=== PATIENT | male | born 1985 | race Caucasian/White ===

== ENCOUNTER 2021-07-06 10:36 | Inpatient (IN) ==
--- NOTE | 2021-07-06 11:52 | Emergency Department Note ---
Impression & Plan Pneumonia due to 2019 novel coronavirus, WASSERMAN (dyspnea on exertion) ED Provider Note NAME: YAO ALARCON AGE: 35 SEX: M : 1985 ARRIVES VIA: Walk-In INFORMANT: Patient, ED PROVIDER(S): Pilo Carey DO CHIEF COMPLAINT: Chest pain HPI: The patient is a 35-year-old male who presented to the emergency department for an evaluation of chest pain. The patient describes chest pain and difficulty breathing which began approximately 9 to 10 days ago. The patient was seen in our facility recently and diagnosed with COVID-19 infection. He denies having any nausea or vomiting. He denies having any leg pain or swelling. He initially presented to our facility for possible DVT because of the left calf pain. He states that those symptoms have since improved but he now complains of cough difficulty breathing and chest pain. He did not see his family doctor for the symptoms. He was tested positive for COVID-19. The patient did not get the Covid vaccine. He has been trying to take [id number] medication with only minimal relief. ROS: See above HPI for pertinent positives & negatives. A total of 10 systems reviewed and were otherwise negative. PAST MEDICAL HISTORY: See Below PAST SURGICAL HISTORY: See Below FAMILY HISTORY: See Below SOCIAL HISTORY: See Below HOME MEDICATIONS: See Below ALLERGIES: See Below VITALS: See Below PHYSICAL EXAMINATION: GENERAL: The patient is awake and alert. He is somewhat anxious appearing but overall comfortable. EYES: The conjunctivae are clear. The pupils are round and reactive. EARS, NOSE, MOUTH AND THROAT: The nose is without any evidence of any deformity. NECK: The neck is nontender and supple. RESPIRATORY: Diminished breath sounds are noted in the left lung field. There is no tachypnea or conversational dyspnea. CARDIOVASCULAR: Regular rate and rhythm noted there no murmurs rubs or gallops normal S1 normal S2. GASTROINTESTINAL: The abdomen is soft. Abdomen is nontender. MUSCULOSKELETAL/EXTREMITIES: There is no evidence of gross deformity full range of motion is noted in the hips and shoulders. SKIN: There is no obvious evidence of any rash. There are no petechiae, pallor or cyanosis noted. No calf tenderness was elicited. NEUROLOGIC: Patient is awake alert and oriented x3 strength is symmetric patellar reflexes are 2+ bilaterally MEDICAL DECISION MAKING: The patient is a 35-year-old male who presented to the emergency department for an evaluation of shortness of breath. The patient was seen in our facility recently for calf pain. At that time he was diagnosed with COVID-19. He did not have a DVT. The patient is not vaccinated. He presented because of worsening shortness of breath. Certainly the patient has abnormal lung sounds and severe dyspnea with any exertion but his oxygen saturation continues to be above 90% in the emergency department. He does have a pulse ox at home. He states his pulse ox has been below 90 at home and he recorded 87%. I discussed the patient's laboratory and radiographic studies with him. On reevaluation he felt that he was to short of breath to be able to be discharged. He was treated with Decadron. [facility] have agreed to evaluate the patient in the emergency department for further management and disposition. Triage Nursing notes reviewed. Prior medical records reviewed Vital Signs: reviewed and remarkable for elevated blood pressure and borderline hypoxia. Differential diagnosis: Cardiac ischemia, aortic dissection, pulmonary embolism, pneumothorax, pneumon ia, pericarditis, myocarditis, esophageal rupture, GERD, cholecystitis, pancreatitis, musculoskeletal, as well as other pathologies. ER treatment provided: See below Diagnostics interpreted by me: ECG: EKG was obtained in the emergency department. My interpretation is normal sinus rhythm at 86 bpm. There was no ectopy. There was no acute ST segment abnormalities noted. No previous tracing was available. Cardiac Monitoring: An order was placed for continuous cardiac monitoring. The monitor shows a rate of 90 bpm with sinus rhythm. Laboratory studies: As stated above and show below. Imaging studies: See below Consultation(s): I discussed this case with Saira who [facility] They will evaluate the patient in the emergency department. Past Med/Surg History Medical History COVID-19 Social History Smoking Status: Never smoker Feels Safe at Home: Yes Allergies Allergies Allergy/AdvReac Type Severity Reaction Status Date / Time No Known Allergies Unverified 07/02/21 16:31 Home Meds Home Medications Medication Instructions Recorded Confirmed ibuprofen 200 mg tablet 800 mg PO TID PRN 07/06/21 07/06/21 Previous Rx's Medication Instructions Recorded ondansetron 4 mg disintegrating 4 - 8 mg PO Q8H PRN #14 tab 07/02/21 tablet Results & Data (ED) Vital Signs Vital Signs - 24 hr 07/06/21 10:44 07/06/21 11:57 07/06/21 12:00 Temperature 36.6 C Temperature Source Temporal Artery Scan Pulse Rate 101 H 85 105 H Pulse Rate [Left Finger] Pulse Rate from SpO2 Sensor 88 96 H Respiratory Rate 18 29 H 27 H Respiratory Effort / Characteristics Short of Breath SOB on Exertion Respiratory Depth Normal Respiratory Pattern Blood Pressure 128/71 Blood Pressure [Left Arm] Blood Pressure Mean 90 Blood Pressure Mean [Left Arm] Blood Pressure Position [Left Arm] Pulse Oximetry 94 93 94 Oxygen Delivery Method Room Air Room Air Sepsis Recent Fever Within 48 Hours No Sepsis New/Unexplained Change in Mental Status No Sepsis Action Taken by Nursing No Action Required Pulse Oximetry Post Tiitration 94 07/06/21 12:01 07/06/21 12:10 07/06/21 12:20 Temperature Temperature Source Pulse Rate 52 L 89 83 Pulse Rate [Left Finger] Pulse Rate from SpO2 Sensor 90 84 Respiratory Rate 21 25 H Respiratory Effort / Characteristics Respiratory Depth Respiratory Pattern Blood Pressure Blood Pressure [Left Arm] Blood Pressure Mean Blood Pressure Mean [Left Arm] Blood Pressure Position [Left Arm] Pulse Oximetry 94 93 94 Oxygen Delivery Method Room Air Room Air Room Air Sepsis Recent Fever Within 48 Hours Sepsis New/Unexplained Change in Mental Status Sepsis Action Taken by Nursing Pulse Oximetry Post Tiitration 07/06/21 12:30 07/06/21 12:36 07/06/21 12:40 Temperature Temperature Source Pulse Rate 90 86 Pulse Rate [Left Finger] 95 H Pulse Rate from SpO2 Sensor 89 87 Respiratory Rate 20 33 H Respiratory Effort / Characteristics Non-Labored Respiratory Depth Respiratory Pattern Blood Pressure Blood Pressure [Left Arm] 133/78 Blood Pressure Mean Blood Pressure Mean [Left Arm] 96 Blood Pressure Position [Left Arm] Pulse Oximetry 93 95 93 Oxygen Delivery Method Room Air Room Air Room Air Sepsis Recent Fever Within 48 Hours Sepsis New/Unexplained Change in Mental Status Sepsis Action Taken by Nursing Pulse Oximetry Post Tiitration 07/06/21 12:50 07/06/21 13:00 07/06/21 13:10 Temperature Temperature Source Pulse Rate 83 83 92 H Pulse Rate [Left Finger] Pulse Rate from SpO2 Sensor 85 83 99 H Respiratory Rate 17 32 H Respiratory Effort / Characteristics Respiratory Depth Respiratory Pattern Blood Pressure Blood Pressure [Left Arm] Blood Pressure Mean Blood Pressure Mean [Left Arm] Blood Pressure Position [Left Arm] Pulse Oximetry 93 93 95 Oxygen Delivery Method Room Air Room Air Room Air Sepsis Recent Fever Within 48 Hours Sepsis New/Unexplained Change in Mental Status Sepsis Action Taken by Nursing Pulse Oximetry Post Tiitration 07/06/21 13:20 07/06/21 13:30 07/06/21 13:40 Temperature Temperature Source Pulse Rate 82 82 91 H Pulse Rate [Left Finger] Pulse Rate from SpO2 Sensor 84 82 89 Respiratory Rate 21 32 H 38 H Respiratory Effort / Characteristics Respiratory Depth Respiratory Pattern Blood Pressure Blood Pressure [Left Arm] Blood Pressure Mean Blood Pressure Mean [Left Arm] Blood Pressure Position [Left Arm] Pulse Oximetry 94 95 95 Oxygen Delivery Method Room Air Room Air Room Air Sepsis Recent Fever Within 48 Hours Sepsis New/Unexplained Change in Mental Status Sepsis Action Taken by Nursing Pulse Oximetry Post Tiitration 07/06/21 13:50 07/06/21 14:00 07/06/21 14:13 Temperature Temperature Source Pulse Rate 91 H 88 Pulse Rate [Left Finger] 66 Pulse Rate from SpO2 Sensor 92 H 88 110 H Respiratory Rate 22 27 H 29 H Respiratory Effort / Characteristics Non-Labored Respiratory Depth Respiratory Pattern Blood Pressure Blood Pressure [Left Arm] 128/76 Blood Pressure Mean Blood Pressure Mean [Left Arm] 93 Blood Pressure Position [Left Arm] Pulse Oximetry 94 96 93 Oxygen Delivery Method Room Air Room Air Room Air Sepsis Recent Fever Within 48 Hours Sepsis New/Unexplained Change in Mental Status Sepsis Action Taken by Nursing Pulse Oximetry Post Tiitration 07/06/21 14:20 07/06/21 14:30 07/06/21 14:40 Temperature Temperature Source Pulse Rate 87 91 H 90 Pulse Rate [Left Finger] Pulse Rate from SpO2 Sensor 88 91 H 90 Respiratory Rate 25 H 24 28 H Respiratory Effort / Characteristics Respiratory Depth Respiratory Pattern Blood Pressure Blood Pressure [Left Arm] Blood Pressure Mean Blood Pressure Mean [Left Arm] Blood Pressure Position [Left Arm] Pulse Oximetry 96 94 95 Oxygen Delivery Method Room Air Room Air Room Air Sepsis Recent Fever Within 48 Hours Sepsis New/Unexplained Change in Mental Status Sepsis Action Taken by Nursing Pulse Oximetry Post Tiitration 07/06/21 14:50 07/06/21 15:00 07/06/21 15:10 Temperature Temperature Source Pulse Rate 94 H 87 90 Pulse Rate [Left Finger] Pulse Rate from SpO2 Sensor 93 H 87 90 Respiratory Rate 25 H 35 H Respiratory Effort / Characteristics Respiratory Depth Respiratory Pattern Blood Pressure Blood Pressure [Left Arm] Blood Pressure Mean Blood Pressure Mean [Left Arm] Blood Pressure Position [Left Arm] Pulse Oximetry 96 95 95 Oxygen Delivery Method Room Air Room Air Room Air Sepsis Recent Fever Within 48 Hours Sepsis New/Unexplained Change in Mental Status Sepsis Action Taken by Nursing Pulse Oximetry Post Tiitration 07/06/21 15:20 07/06/21 15:30 07/06/21 15:40 Temperature Temperature Source Pulse Rate 89 89 89 Pulse Rate [Left Finger] Pulse Rate from SpO2 Sensor 90 91 H 89 Respiratory Rate 31 H 32 H 21 Respiratory Effort / Characteristics Respiratory Depth Respiratory Pattern Blood Pressure Blood Pressure [Left Arm] Blood Pressure Mean Blood Pressure Mean [Left Arm] Blood Pressure Position [Left Arm] Pulse Oximetry 95 95 92 Oxygen Delivery Method Room Air Room Air Room Air Sepsis Recent Fever Within 48 Hours Sepsis New/Unexplained Change in Mental Status Sepsis Action Taken by Nursing Pulse Oximetry Post Tiitration 07/06/21 15:41 07/06/21 15:50 07/06/21 16:00 Temperature Temperature Source Pulse Rate 87 88 Pulse Rate [Left Finger] 90 Pulse Rate from SpO2 Sensor 109 H 88 Respiratory Rate 24 20 Respiratory Effort / Characteristics Non-Labored Spontaneous Respiratory Depth Normal Respiratory Pattern Regular Blood Pressure Blood Pressure [Left Arm] 133/78 Blood Pressure Mean Blood Pressure Mean [Left Arm] 96 Blood Pressure Position [Left Arm] Lying Pulse Oximetry 92 92 93 Oxygen Delivery Method Room Air Room Air Room Air Sepsis Recent Fever Within 48 Hours Sepsis New/Unexplained Change in Mental Status Sepsis Action Taken by Nursing Pulse Oximetry Post Tiitration 07/06/21 16:10 07/06/21 16:20 07/06/21 16:30 Temperature Temperature Source Pulse Rate 87 96 H 96 H Pulse Rate [Left Finger] Pulse Rate from SpO2 Sensor 87 95 H 96 H Respiratory Rate Respiratory Effort / Characteristics Respiratory Depth Respiratory Pattern Blood Pressure Blood Pressure [Left Arm] Blood Pressure Mean Blood Pressure Mean [Left Arm] Blood Pressure Position [Left Arm] Pulse Oximetry 92 96 93 Oxygen Delivery Method Room Air Room Air Room Air Sepsis Recent Fever Within 48 Hours Sepsis New/Unexplained Change in Mental Status Sepsis Action Taken by Nursing Pulse Oximetry Post Tiitration 07/06/21 16:40 07/06/21 16:50 07/06/21 17:00 Temperature Temperature Source Pulse Rate 91 H 90 92 H Pulse Rate [Left Finger] Pulse Rate from SpO2 Sensor 92 H 91 H 93 H Respiratory Rate 30 H 19 Respiratory Effort / Characteristics Respiratory Depth Respiratory Pattern Blood Pressure 142/79 H Blood Pressure [Left Arm] Blood Pressure Mean 100 Blood Pressure Mean [Left Arm] Blood Pressure Position [Left Arm] Pulse Oximetry 94 94 93 Oxygen Delivery Method Room Air Room Air Room Air Sepsis Recent Fever Within 48 Hours Sepsis New/Unexplained Change in Mental Status Sepsis Action Taken by Nursing Pulse Oximetry Post Tiitration 07/06/21 17:10 07/06/21 17:20 07/06/21 17:30 Temperature Temperature Source Pulse Rate 90 89 90 Pulse Rate [Left Finger] Pulse Rate from SpO2 Sensor 91 H 91 H 90 Respiratory Rate 35 H Respiratory Effort / Characteristics Respiratory Depth Respiratory Pattern Blood Pressure Blood Pressure [Left Arm] Blood Pressure Mean Blood Pressure Mean [Left Arm] Blood Pressure Position [Left Arm] Pulse Oximetry 94 93 91 Oxygen Delivery Method Room Air Room Air Room Air Sepsis Recent Fever Within 48 Hours Sepsis New/Unexplained Change in Mental Status Sepsis Action Taken by Nursing Pulse Oximetry Post Tiitration Home Medications Current Medication List: was personally reviewed by me Laboratory Data Attestation: I reviewed the patient's lab results. Result diagrams: 07/06/21 11:47 07/06/21 11:47 Lab Results 07/06/21 07/06/21 07/06/21 Range/Units 11:47 11:47 11:47 WBC 8.20 (4.8-10.8) K/uL RBC 4.87 (4.7-6.1) M/uL Hgb 13.8 L (14.0-18.0) g/dL Hct 40.4 L (42-52) % MCV 83.0 (80-100) fL MCH 28.3 (25-34) pg MCHC 34.2 (32-36) g/dL RDW Std Deviation 40.8 (36.4-46.3) fL RDW Coeff of Brenda 13.5 (11.5-14.5) % Plt Count 213 (130-400) K/uL MPV 9.0 (7.4-10.4) fL Immature Gran % (Auto) 1.1 % Neut % (Auto) 81.8 % Lymph % (Auto) 9.4 % Grainger % (Auto) 7.6 % Eos % (Auto) 0.0 % Baso % (Auto) 0.1 % Neut # (Auto) 6.71 H (1.4-6.5) K/uL Lymph # (Auto) 0.77 L (1.2-3.4) K/uL Grainger # (Auto) 0.62 H (0.11-0.59) K/uL Eos # (Auto) 0.00 (0-0.5) K/uL Baso # (Auto) 0.01 (0-0.2) K/uL Immature Gran # (Auto) 0.09 H (0.00-0.02) K/uL ESR (0-15) mm/hr PT 11.6 (9.0-12.0) Seconds INR 1.2 H (0.9-1.1) APTT 33.3 H (21.0-31.0) Seconds PTT Ratio 1.3 D-Dimer 1130 H* (0-500) ug/L FEU Sodium 134 L (136-145) mmol/L Potassium 3.8 (3.5-5.1) mmol/L Chloride 98 (98-107) mmol/L Carbon Dioxide 28 (21-32) mmol/L Anion Gap 8.0 (3-11) BUN 7 (7-18) mg/dl Creatinine 0.91 (0.6-1.4) mg/dl Est Cr Clr Drug Dosing 122.0 ml/min Est GFR ( Amer) 124.3 ml/min Est GFR (Non-Af Amer) 107.3 ml/min BUN/Creatinine Ratio 8.1 L (10-20) Glucose 107 H (70-99) mg/dl Lactate (0.4-2.0) mmol/L Calcium 8.8 (8.5-10.1) mg/dl Magnesium 2.4 (1.8-2.4) mg/dl Ferritin (8-388) ng/ml Total Bilirubin 0.9 (0.2-1) mg/dl AST 38 H (15-37) U/L ALT 42 (12-78) U/L Alkaline Phosphatase 37 L (45-117) U/L Lactate Dehydrogenase (87-241) U/L Troponin I < 0.015 (0-0.045) ng/ml C-Reactive Protein (0-0.29) mg/dl Total Protein 7.2 (6.4-8.2) gm/dl Albumin 3.0 L (3.4-5.0) gm/dl Globulin 4.2 H (2.5-4.0) gm/dl Albumin/Globulin Ratio 0.7 L (0.9-2) 07/06/21 07/06/21 07/06/21 Range/Units 16:56 16:56 16:56 WBC (4.8-10.8) K/uL RBC (4.7-6.1) M/uL Hgb (14.0-18.0) g/dL Hct (42-52) % MCV (80-100) fL MCH (25-34) pg MCHC (32-36) g/dL RDW Std Deviation (36.4-46.3) fL RDW Coeff of Brenda (11.5-14.5) % Plt Count (130-400) K/uL MPV (7.4-10.4) fL Immature Gran % (Auto) % Neut % (Auto) % Lymph % (Auto) % Grainger % (Auto) % Eos % (Auto) % Baso % (Auto) % Neut # (Auto) (1.4-6.5) K/uL Lymph # (Auto) (1.2-3.4) K/uL Grainger # (Auto) (0.11-0.59) K/uL Eos # (Auto) (0-0.5) K/uL Baso # (Auto) (0-0.2) K/uL Immature Gran # (Auto) (0.00-0.02) K/uL ESR 57 H (0-15) mm/hr PT (9.0-12.0) Seconds INR (0.9-1.1) APTT (21.0-31.0) Seconds PTT Ratio D-Dimer (0-500) ug/L FEU Sodium (136-145) mmol/L Potassium (3.5-5.1) mmol/L Chloride (98-107) mmol/L Carbon Dioxide (21-32) mmol/L Anion Gap (3-11) BUN (7-18) mg/dl Creatinine (0.6-1.4) mg/dl Est Cr Clr Drug Dosing ml/min Est GFR ( Amer) ml/min Est GFR (Non-Af Amer) ml/min BUN/Creatinine Ratio (10-20) Glucose (70-99) mg/dl Lactate 1.3 (0.4-2.0) mmol/L Calcium (8.5-10.1) mg/dl Magnesium (1.8-2.4) mg/dl Ferritin 1505.9 H (8-388) ng/ml Total Bilirubin (0.2-1) mg/dl AST (15-37) U/L ALT (12-78) U/L Alkaline Phosphatase (45-117) U/L Lactate Dehydrogenase (87-241) U/L Troponin I (0-0.045) ng/ml C-Reactive Protein 4.46 H (0-0.29) mg/dl Total Protein (6.4-8.2) gm/dl Albumin (3.4-5.0) gm/dl Globulin (2.5-4.0) gm/dl Albumin/Globulin Ratio (0.9-2) 07/06/21 Range/Units 16:56 WBC (4.8-10.8) K/uL RBC (4.7-6.1) M/uL Hgb (14.0-18.0) g/dL Hct (42-52) % MCV (80-100) fL MCH (25-34) pg MCHC (32-36) g/dL RDW Std Deviation (36.4-46.3) fL RDW Coeff of Brenda (11.5-14.5) % Plt Count (130-400) K/uL MPV (7.4-10.4) fL Immature Gran % (Auto) % Neut % (Auto) % Lymph % (Auto) % Grainger % (Auto) % Eos % (Auto) % Baso % (Auto) % Neut # (Auto) (1.4-6.5) K/uL Lymph # (Auto) (1.2-3.4) K/uL Grainger # (Auto) (0.11-0.59) K/uL Eos # (Auto) (0-0.5) K/uL Baso # (Auto) (0-0.2) K/uL Immature Gran # (Auto) (0.00-0.02) K/uL ESR (0-15) mm/hr PT (9.0-12.0) Seconds INR (0.9-1.1) APTT (21.0-31.0) Seconds PTT Ratio D-Dimer (0-500) ug/L FEU Sodium (136-145) mmol/L Potassium (3.5-5.1) mmol/L Chloride (98-107) mmol/L Carbon Dioxide (21-32) mmol/L Anion Gap (3-11) BUN (7-18) mg/dl Creatinine (0.6-1.4) mg/dl Est Cr Clr Drug Dosing ml/min Est GFR ( Amer) ml/min Est GFR (Non-Af Amer) ml/min BUN/Creatinine Ratio (10-20) Glucose (70-99) mg/dl Lactate (0.4-2.0) mmol/L Calcium (8.5-10.1) mg/dl Magnesium (1.8-2.4) mg/dl Ferritin (8-388) ng/ml Total Bilirubin (0.2-1) mg/dl AST (15-37) U/L ALT (12-78) U/L Alkaline Phosphatase (45-117) U/L Lactate Dehydrogenase 416 H (87-241) U/L Troponin I (0-0.045) ng/ml C-Reactive Protein (0-0.29) mg/dl Total Protein (6.4-8.2) gm/dl Albumin (3.4-5.0) gm/dl Globulin (2.5-4.0) gm/dl Albumin/Globulin Ratio (0.9-2) Administered Medications Discontinued Medications Dexamethasone Sodium Phosphate (DexamethasonePf 10 Mg/Ml Vial) 10 mg IV NOW ONE Stop: 07/06/21 15:51 Last Admin: 07/06/21 16:12 Dose: 10 mg Documented by: [id number] Ioversol (Optiray 320 125ml) 120 ml IV ONCE ONE Stop: 07/06/21 14:12 Last Admin: 07/06/21 14:11 Dose: 120 ml Documented by: [id number] Imaging Data Radiologist's Impression: Chest X-Ray 07/06/21 11:11 SINGLE VIEW CHEST CLINICAL HISTORY: Dyspnea FINDINGS: An AP, portable, upright chest radiograph is obtained. No prior studies are available for comparison at the time of dictation. The cardiomediastinal silhouette is unremarkable. There is multifocal airspace consolidation. No large pleural effusion or pneumothorax is identified. The bony thorax is grossly intact. IMPRESSION: Multifocal airspace consolidation is typical for pneumonia. Clinical correlation will be required and radiographic follow-up to resolution is r ecommended. ACT 112: Negative or not required by law. Electronically signed by: Meek Escalera M.D. 07/06/2021 12:37 PM Chest CTA 07/06/21 12:50 CT ANGIOGRAPHY OF THE CHEST, PULMONARY EMBOLUS PROTOCOL CLINICAL HISTORY: Fever. Covid. COMPARISON STUDY: Chest radiograph performed earlier today. TECHNIQUE: Following IV administration of 120 mL of Optiray, helical axial images of the chest were obtained utilizing the pulmonary embolus protocol. Max imal intensity projections and sagittal and coronal reformats were viewed on an independent 3D workstation. IV contrast was administered without complication. Automated exposure control was utilized for the study. A dose lowering technique was utilized adhering to the principles of ALARA. CT DOSE: 452.62 mGycm FINDINGS: No pulmonary emboli are identified although the segmental and subsegmental pulmonary arteries are suboptimally assessed due to respiratory motion. There is no thoracic aortic dissection. Size of the heart is normal. There are prominent mediastinal and bilateral hilar lymph nodes which are likely reactive. Note is made of multifocal consolidation and groundglass opacity, most pronounced within the bilateral lower lobes. There is no pneumothorax or pleural effusion. Central airways are patent. There is mild splenomegaly. IMPRESSION: 1. No pulmonary emboli identified although segmental and subsegmental pulmonary arteries suboptimally assessed due to respiratory motion. 2. Multifocal consolidation and groundglass opacities most pronounced within the bilateral lower lobes. This suggests viral pneumonia. ACT 112: Negative or not required by law. Electronically signed by: Marty aLgos M.D. 07/06/2021 2:48 PM Discharge Plan Visit Data Chief Complaint: Respiratory Problems Stated Complaint: RESPIRATORY PROBLEMS ED Provider: Pilo Carey Discharge Problem: Pneumonia due to 2019 novel coronavirus, WASSERMAN (dyspnea on exertion) Patient Disposition: Being Evaluated by Hospitalist Forms Stand Alone Forms: [employer] Prescriptions Prescriptions: No Action ondansetron 4 mg tablet,disintegrating 4 - 8 mg PO Q8H PRN (Reason: nausea and vomiting) Qty: 14 RF: 0 ibuprofen 200 mg Tablet 800 mg PO TID PRN (Reason: Pain) RF: 0 Referrals Referrals: PCP,NO [Primary Care Provider] -
[2021-07-06 12:05] LABS: Basophils # (auto) 0.01 K/uL (0-0.2); Basophils % (auto) 0.1 %; Hematocrit (blood only) 40.4 % (42-52); Hemoglobin 13.8 g/dL (14.0-18.0); Immature Granulocytes # (auto) 0.09 K/uL (0.00-0.02); Immature Granulocytes % (auto) 1.1 %; Lymphocytes # (auto) 0.77 K/uL (1.2-3.4); Lymphocytes % (auto) 9.4 %; Mean Corpuscular Hemoglobin 28.3 pg (25-34); Mean Corpuscular Hgb Conc 34.2 g/dL (32-36); Monocytes # (auto) 0.62 K/uL (0.11-0.59); Monocytes % (auto) 7.6 %; Neutrophils # (auto) 6.71 K/uL (1.4-6.5); Neutrophils % (auto) 81.8 %; Platelet Count 213 K/uL (130-400); RDW Coefficient of Variation 13.5 % (11.5-14.5); RDW Standard Deviation 40.8 fL (36.4-46.3); Red Blood Count 4.87 M/uL (4.7-6.1)
[2021-07-06 12:16] LABS: INR 1.2 (0.9-1.1); Partial Thromboplastin Ratio 1.3; Partial Thromboplastin Time 33.3 Seconds (21.0-31.0); Prothrombin Time 11.6 Seconds (9.0-12.0)
[2021-07-06 12:24] LABS: D Dimer 1130 ug/L FEU (0-500)
[2021-07-06 12:26] LABS: Alanine Aminotransferase 42 U/L (12-78); Aspartate Aminotransferase 38 U/L (15-37); BUN Creatinine Ratio 8.1 (10-20); Blood Urea Nitrogen 7 mg/dl (7-18); Calcium 8.8 mg/dl (8.5-10.1); Carbon Dioxide 28 mmol/L (21-32); Chloride 98 mmol/L (98-107); Est GFR (African American) 124.3 ml/min; Est GFR (Non-African American) 107.3 ml/min; Glucose 107 mg/dl (70-99); Magnesium 2.4 mg/dl (1.8-2.4); Potassium 3.8 mmol/L (3.5-5.1); Sodium 134 mmol/L (136-145)
[2021-07-06 12:31] LABS: Albumin Globulin Ratio 0.7 (0.9-2); Alkaline Phosphatase 37 U/L (45-117); Bilirubin,Total 0.9 mg/dl (0.2-1); Globulin 4.2 gm/dl (2.5-4.0); Total Protein 7.2 gm/dl (6.4-8.2); Troponin I < 0.015 ng/ml (0-0.045)
--- NOTE | 2021-07-06 12:38 | XRay Report ---
SINGLE VIEW CHEST CLINICAL HISTORY: Dyspnea FINDINGS: An AP, portable, upright chest radiograph is obtained. No prior studies are available for c omparison at the time of dictation. The cardiomediastinal silhouette is unremarkable. There is multi focal airspace consolidation. No large pleural effusion or pneumothorax is identified. The bony thora x is grossly intact. IMPRESSION: Multifocal airspace consolidation is typical for pneumonia. Clinical correlation will be required and radiographic follow-up to resolution is recommended. ACT 112: Negative or not required by law. Electronically signed by: Meek Escalera M.D. 07/06/2021 12:37 PM
[2021-07-06] MEDS ORDERED: OPTIRAY 320 125ml IV ONE (14:11)
--- NOTE | 2021-07-06 14:49 | CT Scan Report ---
CT ANGIOGRAPHY OF THE CHEST, PULMONARY EMBOLUS PROTOCOL CLINICAL HISTORY: Fever. Covid. COMPARISON STUDY: Chest radiograph performed earlier today. TECHNIQUE: Following IV administration of 120 mL of Optiray, helical axial images of the chest were o btained utilizing the pulmonary embolus protocol. Maximal intensity projections and sagittal and cor onal reformats were viewed on an independent 3D workstation. IV contrast was administered without co mplication. Automated exposure control was utilized for the study. A dose lowering technique was ut ilized adhering to the principles of ALARA. CT DOSE: 452.62 mGycm FINDINGS: No pulmonary emboli are identified although the segmental and subsegmental pulmonary arter ies are suboptimally assessed due to respiratory motion. There is no thoracic aortic dissection. Size of the heart is normal. There are prominent mediastinal and bilateral hilar lymph nodes which are li stuart reactive. Note is made of multifocal consolidation and groundglass opacity, most pronounced with in the bilateral lower lobes. There is no pneumothorax or pleural effusion. Central airways are paten t. There is mild splenomegaly. IMPRESSION: 1. No pulmonary emboli identified although segmental and subsegmental pulmonary arteries suboptimally assessed due to respiratory motion. 2. Multifocal consolidation and groundglass opacities most pronounced within the bilateral lower lobe s. This suggests viral pneumonia. ACT 112: Negative or not required by law. Electronically signed by: Marty Lagos M.D. 07/06/2021 2:48 PM
--- NOTE | 2021-07-06 15:30 | Electrocardiogram Report ---
Test Reason : Blood Pressure : / mmHG Vent. Rate : 086 BPM Atrial Rate : 086 BPM P-R Int : 140 ms QRS Dur : 078 ms QT Int : 372 ms P-R-T Axes : 065 062 029 degrees QTc Int : 445 ms Normal sinus rhythm Normal ECG No previous ECGs available Confirmed by Pilo Sherman ([id number]) on 07/06/2021 3:29:32 PM Referred By: REFERRED SELF Confirmed By:Pilo Sherman
[2021-07-06] MEDS ORDERED: dexAMETHasone**PF** 10 MG/ML VIAL IV ONE (15:50)
--- NOTE | 2021-07-06 16:03 | History & Physical Report ---
Date of Service July 06, 2021 Assessment & Plan (1) COVID-19: (2) Body aches: (3) Nausea: (4) Pain of left calf: Plan: - COVID-19 positive, symptoms started on 06/26/21, currently 10 days symptomatic - Procalcitonin pending , ddimer 1130, checking ESR, CRP, ferritin, LDH, and lactate - Lymphocytes 0.77, neutrophils 6.71 - CXR and CTA chest reviewed showing bilateral extensive opacities and consolidation suggestive of viral pneumonia. No PE. Duplex from last Tuesday (07/03/21) of LLE negative for DVT - O2 sats = 92% on RA - WBC = 8.20 - Decadron 6 mg IV daily. If pt needs convalescent plasma then will ask attending to obtain consent. Consider outpt monoclonal antibodies. - Continue supportive therapy and prone as tolerated DVT ppx: - teds, scds, lovenox subq CODE: Full code Dispo: From home, likely to remain in the hospital x 1-2 days History of Present Illness Chief Complaint: Respiratory complaint Primary Care Provider: NO PCP This is a 35 yo M with PMHx of who presented to the hospital initially last Tuesday for complaints of Left lower leg pain. He was swabbed for COVID at that time and found to be positive, however did not have any true respiratory complaints. His leg was negative for DVT, but he continues to develop body aches since then. Denies any injury or falls. Today he represents to the hospital with worsening shortness of breath. He feels that he is winded with minimal activity, and hasn't ever needed supplemental O2 in the past. He admits to having a fever 103 at home, and feels like his breathing continues to worsen, cough with occasional phlegm production, denies hemoptysis. Pt admits to loss of taste and smell, poor appetite, and generalized weakness. He has been been using ibuprofen 200 mg x 4 tablets every 4-6 hours at home for about 5 days or so. He initially developed symptoms on the . Left side of his stomach has pain, has vomited few times last week and also had diarrhea x 1-2 days last Tuesday to Tuesday and now is improved. Lives at home with his , who was symptomatic prior to him. Also has 3 children who live there. Oldest son is 12 yo and also has symptoms. Pt is not vaccinated. CT chest is negative for PE, although has an elevated D-dimer. Family Hx: no known family hx, denies cardiac issues, DM, stroke. Social Hx: Currently Unemployed, does not smoke or drink alcohol with 3 children as above Allergies Allergy/AdvReac Type Severity Reaction Status Date / Time No Known Allergies Unverified 07/02/21 16:31 Home Medications Medication Instructions Recorded Confirmed Type ondansetron 4 mg disintegrating 4 - 8 mg PO Q8H PRN #14 tab 07/02/21 07/06/21 Rx tablet ibuprofen 200 mg tablet 800 mg PO TID PRN 07/06/21 07/06/21 History Past Med/Surg History Medical History COVID-19 Social History Smoking Status: Never smoker Hx Alcohol Use: No Hx Substance Use: No Preferred Language: Amharic Communication Ability: Effective Shutdown Planner Required: No Beliefs That Will Affect Care: None Current Living Situation: Spouse and Family Current Living Situation Comment: Three children. Other Information That Helps Us Care for You: No Feels Safe at Home: Yes Safety Concerns: Feels Safe At This Time Assistive Devices: None Review of Systems Review of Systems: Constitutional: As per HPI, + fever, sweats or chills Eyes: No diplopia, no worsening or blurred vision ENT: normal hearing, no trouble swallowing, + loss of taste and smell Respiratory: + Cough, + occasional sputum, + dyspnea at rest and on exertion Cardiovascular: No chest pain, tightness or palpitations Abdomen: + Left-sided pain, nausea, vomiting, diarrhea per HPI Musculoskeletal: + Generalized muscle pain, no joint pain, calf pain, swelling Neurologic: + generalized weakness, numbness/tingling, or balance problems Psychiatric: No anxiety or depression Skin: No rash or itch Physical Exam Physical Exam: Please refer to attending addendum as I did not see the patient in persondue to being COVID-19 positive Results & Data Results & Data ([facility]) Vital Signs (Past 12 Hours) Vital Signs Temp Pulse Pulse Resp BP BP Pulse Ox 07/06/21 15:41 90 24 133/78 92 07/06/21 14:00 66 18 128/76 95 07/06/21 12:36 95 H 20 133/78 95 07/06/21 12:01 52 L 21 94 07/06/21 10:44 36.6 C 101 H 18 128/71 94 Diagnostic Findings Chest X-Ray 07/06/21 11:11 SINGLE VIEW CHEST CLINICAL HISTORY: Dyspnea FINDINGS: An AP, portable, upright chest radiograph is obtained. No prior studies are available for comparison at the time of dictation. The cardiomediastinal silhouette is unremarkable. There is multifocal airspace consolidation. No large pleural effusion or pneumothorax is identified. The bony thorax is grossly intact. IMPRESSION: Multifocal airspace consolidation is typical for pneumonia. Clinical correlation will be required and radiographic follow-up to resolution is recommended. ACT 112: Negative or not required by law. Electronically signed by: Meek Escalera M.D. 07/06/2021 12:37 PM Chest CTA 07/06/21 12:50 CT ANGIOGRAPHY OF THE CHEST, PULMONARY EMBOLUS PROTOCOL CLINICAL HISTORY: Fever. Covid. COMPARISON STUDY: Chest radiograph performed earlier today. TECHNIQUE: Following IV administration of 120 mL of Optiray, helical axial images of the chest were obtained utilizing the pulmonary embolus protocol. Maximal intensity projections and sagittal and coronal reformats were viewed on an independent 3D workstation. IV contrast was administered without complication. Automated exposure control was utilized for the study. A dose lowering technique was utilized adhering to the principles of ALARA. CT DOSE: 452.62 mGycm FINDINGS: No pulmonary emboli are identified although the segmental and subsegmental pulmonary arteries are suboptimally assessed due to respiratory motion. There is no thoracic aortic dissection. Size of the heart is normal. There are prominent mediastinal and bilateral hilar lymph nodes which are likely reactive. Note is made of multifocal consolidation and groundglass opacity, most pronounced within the bilateral lower lobes. There is no pneumothorax or pleural effusion. Central airways are patent. There is mild splenomegaly. IMPRESSION: 1. No pulmonary emboli identified although segmental and subsegmental pulmonary arteries suboptimally assessed due to respiratory motion. 2. Multifocal consolidation and groundglass opacities most pronounced within the bilateral lower lobes. This suggests viral pneumonia. ACT 112: Negative or not required by law. Electronically signed by: Marty Lagos M.D. 07/06/2021 2:48 PM ECG Additional Comments: Vent. Rate : 086 BPM Atrial Rate : 086 BPM P-R Int : 140 ms QRS Dur : 078 ms QT Int : 372 ms P-R-T Axes : 065 062 029 degrees QTc Int : 445 ms Normal sinus rhythm Normal ECG No previous ECGs available Confirmed by Pilo Sherman ([id number]) on 07/06/2021 3:29:32 PM Code Status & VTE Plan Code Status Full code Supervising Physician Co-Signing Physician Notes COVID-19 positive test (U07.1, COVID-19) with Acute Pneumonia (J12.89, Other viral pneumonia) (If respiratory failure or sepsis present, add as separate assessment) Chest pain; pleuritic in nature Anxiety Patient presents with worsening shortness of breath for the last few days of his been progressively getting worse. Patient was recently seen in the ED medicine for presentation was discharged home after found to be stable with diagnosis of COVID-19. Patient also reports left-sided chest pain that is worse with breathing, movement and cough. Denies any radiation. Today his found to be Covid positive. He is not vaccinated. However, continues to be tachypneic. During my evaluation patient was tachypneic. Appeared very anxious. Does not take any medications at home. He is non-smoker. Reports he had anxiety issues in the past. Will start patient on Decadron. Will obtain procalcitonin. Currently on room air and hemodynamically stable. General: A&Ox3 HENT: NCAT, MMM, EOMI Eyes: PERRLA Neck: Supple, normal range of motion CVS: normal rate and rhythm Resp: b/l good breath sounds Abdomen: Soft, ND/NT Extremities: No c/c/e Neuro: face symmetric, no focal deficits appreciated Skin: warm and dry MSK: no joint swelling/erythema I performed a history and physical examination of the patient on 07/06/21, including specifically H&P. I have discussed the patient's management with the advanced practitioner. Please refer to the [facility] note for the documented findings and plan of care.
[2021-07-06] MEDS ORDERED: LORazepam 0.5 MG TAB PO STA (17:07)
[2021-07-06 17:31] LABS: C Reactive Protein 4.46 mg/dl (0-0.29); Ferritin 1505.9 ng/ml (8-388)
[2021-07-07 08:04] LABS: Hematocrit (blood only) 40.3 % (42-52); Hemoglobin 13.9 g/dL (14.0-18.0); Mean Corpuscular Hemoglobin 28.8 pg (25-34); Mean Corpuscular Hgb Conc 34.5 g/dL (32-36); Mean Corpuscular Volume 83.4 fL (80-100); Mean Platelet Volume 9.1 fL (7.4-10.4); Platelet Count 289 K/uL (130-400); RDW Coefficient of Variation 13.5 % (11.5-14.5); RDW Standard Deviation 41.4 fL (36.4-46.3); Red Blood Count 4.83 M/uL (4.7-6.1); White Blood Count 5.96 K/uL (4.8-10.8)
[2021-07-07 08:41] LABS: Albumin Globulin Ratio 0.6 (0.9-2); Albumin Level 2.9 gm/dl (3.4-5.0); BUN Creatinine Ratio 16.4 (10-20); Bilirubin,Total 0.7 mg/dl (0.2-1); Calcium 9.2 mg/dl (8.5-10.1); Creatinine Clr Calc Pharmacy 135.4 ml/min; Est GFR (African American) 130.9 ml/min; Globulin 4.5 gm/dl (2.5-4.0); Potassium 4.9 mmol/L (3.5-5.1); Total Protein 7.4 gm/dl (6.4-8.2)
[2021-07-07] MEDS: ENOXAPARIN INJ 40 MG/0.4 ML SYR SQ SCH (09:10)
[2021-07-07] MEDS: dexAMETHasone 6 MG in SYRINGE 0 ML IV SCH (09:10)
--- NOTE | 2021-07-07 12:54 | Hospitalist Progress Note ---
Date of Service July 07, 2021 Assessment & Plan (1) COVID-19: (2) Body aches: (3) Nausea: (4) Pain of left calf: Plan: - COVID-19 positive, symptoms started on 06/26/21, currently 10 days symptomatic - Procalcitonin less than 0.05, ddimer 1130, CRP of 4.46 ferritin of 1500. - CXR and CTA chest reviewed showing bilateral extensive opacities and consolidation suggestive of viral pneumonia. No PE. Duplex from last Tuesday (07/03/21) of LLE negative for DVT Overnight patient was hypoxic in the 80s and was placed on oxygen. Currently he is on 2 L of nasal cannula. WBC is within normal limit. Hemodynamically patient is doing okay. Continue with Decadron 6 mg IV daily. Patient refused remdesivir and states he does not want it. - Continue supportive therapy and prone as tolerated DVT ppx: - teds, scds, lovenox subq CODE: Full code Dispo: From home, likely to remain in the hospital x 1-2 days (5) Acute respiratory failure with hypoxia: Admission and Anticipated Discharge Date Admission Date: July 06, 2021 Subjective Feeling much better. Denies any shortness of breath or any significant cough. Reports he has been ambulating. Appetite is improved. Nausea or vomiting. Reports chest pain is improved. Review of Systems Review of Systems: All systems reviewed & are unremarkable except as noted in HPI & below Physical Exam Physical Exam: General: A&Ox3 HENT: NCAT, MMM, EOMI Eyes: PERRLA Neck: Supple, normal range of motion CVS: normal rate and rhythm Resp: b/l good breath sounds Abdomen: Soft, ND/NT Extremities: No c/c/e Neuro: face symmetric, no focal deficits appreciated Skin: warm and dry MSK: no joint swelling/erythema Results & Data Results & Data ([facility]) Vital Signs (Past 12 Hours) Vital Signs Temp Pulse Pulse Resp BP Pulse Ox 07/07/21 12:07 36.4 C L 65 18 123/72 95 07/07/21 08:39 36.7 C 82 18 120/69 94 07/07/21 05:20 85 07/07/21 04:01 37.0 C 72 18 128/60 94
[2021-07-08 06:26] LABS: Hemoglobin 13.9 g/dL (14.0-18.0); Mean Corpuscular Hemoglobin 28.6 pg (25-34); Mean Corpuscular Hgb Conc 34.8 g/dL (32-36); Mean Corpuscular Volume 82.3 fL (80-100); Platelet Count 382 K/uL (130-400); RDW Coefficient of Variation 13.7 % (11.5-14.5); RDW Standard Deviation 41.4 fL (36.4-46.3); Red Blood Count 4.86 M/uL (4.7-6.1)
[2021-07-08 07:05] LABS: Albumin Level 2.9 gm/dl (3.4-5.0); BUN Creatinine Ratio 19.6 (10-20); Calcium 9.3 mg/dl (8.5-10.1); Creatinine Clr Calc Pharmacy 118.1 ml/min; Est GFR (African American) 119.6 ml/min; Est GFR (Non-African American) 103.2 ml/min; Potassium 4.4 mmol/L (3.5-5.1)
[2021-07-08 07:07] LABS: Albumin Globulin Ratio 0.7 (0.9-2); Bilirubin,Total 0.8 mg/dl (0.2-1); Globulin 4.3 gm/dl (2.5-4.0); Total Protein 7.2 gm/dl (6.4-8.2)
[2021-07-08] MEDS: ENOXAPARIN INJ 40 MG/0.4 ML SYR SQ SCH (10:01)
[2021-07-08] MEDS: dexAMETHasone 6 MG in SYRINGE 0 ML IV SCH (10:01)
--- NOTE | 2021-07-08 20:49 | Hospitalist Progress Note ---
Date of Service July 08, 2021 Assessment & Plan (1) Acute respiratory failure with hypoxia: Plan: improved, resolved. 2 step in am. (2) Pneumonia due to COVID-19 virus: Plan: Refused remdesivir. Remains on decadron daily. Cont supportive care. (3) Elevated transaminase level: Plan: Likely related to covid virus. Repeat as outpatient in next few weeks. (4) DVT prophylaxis: Plan: Lovenox Full Code Dispo-to home in am. Two step in am. Fanny Cruz [facility] and Anticipated Discharge Date Admission Date: July 07, 2021 Subjective 35 yo M admitted for covid pneumonia. Ambulating around the room off oxygen and doing well when I arrived. Reports only minor cough at this point, pleurisy has resolved Afebrile and tolerating PO Denies diarrhea Eager to go home. Review of Systems Review of Systems: All systems were reviewed and negative except as indicated in subjective as above. Physical Exam Physical Exam: CONSTITUTIONAL: WNWD, vitals as above, generally well- appearing, ambulating around the room. EYES: normal conjunctivae, no scleral icterus ENT: external ear and nose normal, oropharynx clear, MMM NECK: trachea midline RESPIRATORY: clear to auscultation bilaterally, no crackles, rales or wheezes, normal respiratory effort CARDIOVASCULAR: regular rate and rhythm, S1 and 2 heard without murmurs, gallops or rubs, no JVD, no peripheral edema CHEST: inspection of chest was normal GASTROINTESTINAL: soft, nontender, ND, no guarding MUSCULOSKELETAL: strength 5/5 throughout, head is normocephalic and atraumatic, neck supple, normal palpation of chest wall without tenderness SKIN: warm and dry NEUROLOGIC: CN 2-12 grossly intact, no sensory deficit, normal cognition, normal speech, no tremor PSYCHIATRIC: alert cooperative and oriented to person, place and time. Euthymic mood, makes good eye contact, language grossly intact, recent and remote memory grossly intact. Results & Data Results & Data ([facility]) Vital Signs (Past 12 Hours) Vital Signs Temp Pulse Resp BP Pulse Ox 07/08/21 19:39 36.7 C 69 18 125/78 97 07/08/21 16:18 36.7 C 71 18 129/78 96 07/08/21 11:45 36.3 C L 63 18 110/65 95 Laboratory Results Short CBC 07/08/21 Range/Units 05:33 WBC 10.30 (4.8-10.8) K/uL Hgb 13.9 L (14.0-18.0) g/dL Hct 40.0 L (42-52) % Plt Count 382 (130-400) K/uL BMP 07/08/21 05:33 Sodium 135 L Potassium 4.4 Chloride 101 Carbon Dioxide 27 BUN 19 H Creatinine 0.94 Glucose 120 H Calcium 9.3 Liver Function 07/08/21 Range/Units 05:33 Total Bilirubin 0.8 (0.2-1) mg/dl AST 67 H (15-37) U/L ALT 103 H (12-78) U/L Alkaline Phosphatase 43 L (45-117) U/L Albumin 2.9 L (3.4-5.0) gm/dl Medications Administered Current Inpatient Medications Enoxaparin Sodium (Enoxaparin Inj 40 Mg/0.4 Ml Syr) 40 mg SQ QAM ERNA Stop: 08/06/21 08:59 Last Admin: 07/08/21 10:01 Dose: 40 mg Documented by: Dexamethasone 6 mg/ Syringe 1.5 mls @ 1 mls/min IV DAILY ERNA Stop: 07/17/21 08:59 Last Admin: 07/08/21 10:01 Dose: 1 mls/min Documented by:
[2021-07-09] MEDS: dexAMETHasone 6 MG in SYRINGE 0 ML IV SCH (09:55)
[2021-07-09] MEDS: ENOXAPARIN INJ 40 MG/0.4 ML SYR SQ SCH (09:55)
--- NOTE | 2021-07-09 10:29 | Discharge Summary ---
Date of Service July 09, 2021 Admission HPI Per Admitting Provider This is a 35 yo M with PMHx of who presented to the hospital initially last Tuesday for complaints of Left lower leg pain. He was swabbed for COVID at that time and found to be positive, however did not have any true respiratory complaints. His leg was negative for DVT, but he continues to develop body aches since then. Denies any injury or falls. Today he represents to the hospital with worsening shortness of breath. He feels that he is winded with minimal activity, and hasn't ever needed supplemental O2 in the past. He admits to having a fever 103 at home, and feels like his breathing continues to worsen, cough with occasional phlegm production, denies hemoptysis. Pt admits to loss of taste and smell, poor appetite, and generalized weakness. He has been been using ibuprofen 200 mg x 4 tablets every 4-6 hours at home for about 5 days or so. He initially developed symptoms on the . Left side of his stomach has pain, has vomited few times last week and also had diarrhea x 1-2 days last Satu to Tuesday and now is improved. Lives at home with his , who was symptomatic prior to him. Also has 3 children who live there. Oldest son is 12 yo and also has symptoms. Pt is not vaccinated. CT chest is negative for PE, although has an elevated D-dimer. Family Hx: no known family hx, denies cardiac issues, DM, stroke. Social Hx: Currently Unemployed, does not smoke or drink alcohol with 3 children as above Admission Exam Per Admitting Provider General: A&Ox3 HENT: NCAT, MMM, EOMI Eyes: PERRLA Neck: Supple, normal range of motion CVS: normal rate and rhythm Resp: b/l good breath sounds Abdomen: Soft, ND/NT Extremities: No c/c/e Neuro: face symmetric, no focal deficits appreciated Skin: warm and dry MSK: no joint swelling/erythema Principal Diagnosis COVID pneumonia Discharge Exam CONSTITUTIONAL: WNWD, vitals as above, generally well-appearing, ambulating around the room. EYES: normal conjunctivae, no scleral icterus ENT: external ear and nose normal, oropharynx clear, MMM NECK: trachea midline RESPIRATORY: clear to auscultation bilaterally, no crackles, rales or wheezes, normal respiratory effort CARDIOVASCULAR: regular rate and rhythm, S1 and 2 heard without murmurs, gallops or rubs, no JVD, no peripheral edema CHEST: inspection of chest was normal GASTROINTESTINAL: soft, nontender, ND, no guarding MUSCULOSKELETAL: strength 5/5 throughout, head is normocephalic and atraumatic, neck supple, normal palpation of chest wall without tenderness SKIN: warm and dry NEUROLOGIC: CN 2-12 grossly intact, no sensory deficit, normal cognition, normal speech, no tremor PSYCHIATRIC: alert cooperative and oriented to person, place and time. Euthymic mood, makes good eye contact, language grossly intact, recent and remote memory grossly intact. Discharge Data Allergies Allergy/AdvReac Type Severity Reaction Status Date / Time No Known Allergies Unverified 07/02/21 16:31 Consultations 07/06/21 16:33 ED Decision to Admit Stat Ordered Studies Laboratory Results WBC 10.30 K/uL (4.8-10.8) 07/08/21 05:33 RBC 4.86 M/uL (4.7-6.1) 07/08/21 05:33 Hgb 13.9 g/dL (14.0-18.0) L 07/08/21 05:33 Hct 40.0 % (42-52) L 07/08/21 05:33 MCV 82.3 fL (80-100) 07/08/21 05:33 MCH 28.6 pg (25-34) 07/08/21 05:33 MCHC 34.8 g/dL (32-36) 07/08/21 05:33 RDW Std Deviation 41.4 fL (36.4-46.3) 07/08/21 05:33 RDW Coeff of Brenda 13.7 % (11.5-14.5) 07/08/21 05:33 Plt Count 382 K/uL (130-400) 07/08/21 05:33 MPV 9.0 fL (7.4-10.4) 07/08/21 05:33 Immature Gran % (Auto) 1.1 % 07/06/21 11:47 Neut % (Auto) 81.8 % 07/06/21 11:47 Lymph % (Auto) 9.4 % 07/06/21 11:47 [place] % (Auto) 7.6 % 07/06/21 11:47 Eos % (Auto) 0.0 % 07/06/21 11:47 Baso % (Auto) 0.1 % 07/06/21 11:47 Neut # (Auto) 6.71 K/uL (1.4-6.5) H 07/06/21 11:47 Lymph # (Auto) 0.77 K/uL (1.2-3.4) L 07/06/21 11:47 [place] # (Auto) 0.62 K/uL (0.11-0.59) H 07/06/21 11:47 Eos # (Auto) 0.00 K/uL (0-0.5) 07/06/21 11:47 Baso # (Auto) 0.01 K/uL (0-0.2) 07/06/21 11:47 Immature Gran # (Auto) 0.09 K/uL (0.00-0.02) H 07/06/21 11:47 ESR 57 mm/hr (0-15) H 07/06/21 16:56 PT 11.6 Seconds (9.0-12.0) 07/06/21 11:47 INR 1.2 (0.9-1.1) H 07/06/21 11:47 APTT 33.3 Seconds (21.0-31.0) H 07/06/21 11:47 PTT Ratio 1.3 07/06/21 11:47 D-Dimer 1130 ug/L FEU (0-500) H* 07/06/21 11:47 Sodium 135 mmol/L (136-145) L 07/08/21 05:33 Potassium 4.4 mmol/L (3.5-5.1) 07/08/21 05:33 Chloride 101 mmol/L (98-107) 07/08/21 05:33 Carbon Dioxide 27 mmol/L (21-32) 07/08/21 05:33 Anion Gap 7.0 (3-11) 07/08/21 05:33 BUN 19 mg/dl (7-18) H 07/08/21 05:33 Creatinine 0.94 mg/dl (0.6-1.4) 07/08/21 05:33 Est Cr Clr Drug Dosing 118.1 ml/min 07/08/21 05:33 Est GFR ( Amer) 119.6 ml/min 07/08/21 05:33 Est GFR (Non-Af Amer) 103.2 ml/min 07/08/21 05:33 BUN/Creatinine Ratio 19.6 (10-20) 07/08/21 05:33 Glucose 120 mg/dl (70-99) H 07/08/21 05:33 Lactate 1.3 mmol/L (0.4-2.0) 07/06/21 16:56 Calcium 9.3 mg/dl (8.5-10.1) 07/08/21 05:33 Magnesium 2.4 mg/dl (1.8-2.4) 07/06/21 11:47 Ferritin 1505.9 ng/ml (8-388) H 07/06/21 16:56 Total Bilirubin 0.8 mg/dl (0.2-1) 07/08/21 05:33 AST 67 U/L (15-37) H 07/08/21 05:33 ALT 103 U/L (12-78) H 07/08/21 05:33 Alkaline Phosphatase 43 U/L (45-117) L 07/08/21 05:33 Lactate Dehydrogenase 416 U/L (87-241) H 07/06/21 16:56 Troponin I < 0.015 ng/ml (0-0.045) 07/06/21 11:47 C-Reactive Protein 4.46 mg/dl (0-0.29) H 07/06/21 16:56 Total Protein 7.2 gm/dl (6.4-8.2) 07/08/21 05:33 Albumin 2.9 gm/dl (3.4-5.0) L 07/08/21 05:33 Globulin 4.3 gm/dl (2.5-4.0) H 07/08/21 05:33 Albumin/Globulin Ratio 0.7 (0.9-2) L 07/08/21 05:33 Procalcitonin < 0.05 ng/ml (0-0.5) 07/06/21 16:56 Impressions Chest X-Ray 07/06/21 11:11 SINGLE VIEW CHEST CLINICAL HISTORY: Dyspnea FINDINGS: An AP, portable, upright chest radiograph is obtained. No prior studies are available for comparison at the time of dictation. The cardiomediastinal silhouette is unremarkable. There is multifocal airspace consolidation. No large pleural effusion or pneumothorax is identified. The bony thorax is grossly intact. IMPRESSION: Multifocal airspace consolidation is typical for pneumonia. Clinical correlation will be required and radiographic follow-up to resolution is recommended. ACT 112: Negative or not required by law. Electronically signed by: Meek Escalera M.D. 07/06/2021 12:37 PM Chest CTA 07/06/21 12:50 CT ANGIOGRAPHY OF THE CHEST, PULMONARY EMBOLUS PROTOCOL CLINICAL HISTORY: Fever. Covid. COMPARISON STUDY: Chest radiograph performed earlier today. TECHNIQUE: Following IV administration of 120 mL of Optiray, helical axial images of the chest were obtained utilizing the pulmonary embolus protocol. Maximal intensity projections and sagittal and coronal reformats were viewed on an independent 3D workstation. IV contrast was administered without complication. Automated exposure control was utilized for the study. A dose lowering technique was utilized adhering to the principles of ALARA. CT DOSE: 452.62 mGycm FINDINGS: No pulmonary emboli are identified although the segmental and subsegmental pulmonary arteries are suboptimally assessed due to respiratory motion. There is no thoracic aortic dissection. Size of the heart is normal. There are prominent mediastinal and bilateral hilar lymph nodes which are likely reactive. Note is made of multifocal consolidation and groundglass opacity, most pronounced within the bilateral lower lobes. There is no pneumothorax or pleural effusion. Central airways are patent. There is mild splenomegaly. IMPRESSION: 1. No pulmonary emboli identified although segmental and subsegmental pulmonary arteries suboptimally assessed due to respiratory motion. 2. Multifocal consolidation and groundglass opacities most pronounced within the bilateral lower lobes. This suggests viral pneumonia. ACT 112: Negative or not required by law. Electronically signed by: Marty Lagos M.D. 07/06/2021 2:48 PM Hospital Course (1) Acute respiratory failure with hypoxia: (2) Pneumonia due to COVID-19 virus: (3) Elevated transaminase level: improved, resolved after short course of decadron. Refused remdesivir. Passed two step test with no oxygen needs. Return home in stable condition. Mild elevation in LFTs Likely related to covid-19 viral infection. Repeat as outpatient in next few weeks. Total Time Total Time Spent Total Time Spent (In Minutes): 60 Discharge Plan Discharge Items Patient Disposition: Home - Self-Care Reason For Visit: COVID 19+ PNEUMONIA Discharge Diagnosis: COVID pneumonia Condition on Discharge: Good Activity: Resume your previous activity Non-emergency contact: Primary Care Provider Call non-emergency contact if: you have any medication questions, your symptoms worsen and you have a fever Follow-up/Referrals: PCP,NO [Primary Care Provider] - Diet: Regular Addtl Attending Provider Instructions: Please take all medications as instructed on discharge list below. Please follow-up with your primary care provider within one week of discharge to ensure you are still feeling well since discharge from the hospital. Please observe home isolation for at least 10 days since symptom onset per public health guidance. It was a pleasure taking care of you! Please call if you have any questions or problems. You can reach a [facility] hospitalist on duty at [facility] 24 hours a day by calling [phone]. Take care of yourself. Fanny Cruz, [facility] Hospitalist Pending Studies at Discharge: No Stand-Alone Forms: My [facility] Medications and DC Order Prescriptions: Continued ibuprofen 200 mg Tablet 800 mg PO TID PRN (Reason: Pain) RF: 0 Discontinued ondansetron 4 mg tablet,disintegrating 4 - 8 mg PO Q8H PRN (Reason: nausea and vomiting) Qty: 14 RF: 0 Discharge Orders: Discharge Order (Routine); Ordered 07/09/21 Ordered By: Fanny Cruz Admission Data Admit Date/Time: 07/07/21 12:54 Attending Provider: Fanny Cruz Admit Provider: Kemar Miller Primary Care Provider: PCP,NO Other Providers: Kemar Miller
== END 2021-07-09 11:25 | disposition home or self-care (01) | DRG 177 ==
LOC: 2E 10:36 → ED 10:36 → 2E 19:20 → SUATTDRO 07-07 12:54